=== PATIENT | male | born 1940 | race Caucasian/White ===

== ENCOUNTER 2019-06-30 19:08 | Observation (INO) | payer MEDICARE, BC ==
[~2019-06-30] VITALS: Ht 175.3 cm; Wt 108.9 kg
[~2019-06-30 19:08] MED LIST: ASPI325; Baclofen10 MG PO; CYCL10 PO; ESCI20; ESCI20 PO; HYDACE10 PO; HYDACE5; HYDMOR2 PO; IBUP400 PO; IBUP800; Kristalose20 GM PO; LORA1 PO; LOVA40; Lasix40 MG PO; MECL25; META800 PO; MULVITA; OLME20; Percocet 5-3251 EACH PO; Prednisone20 MG PO; Protonix40 MG PO; RXHYDACE PO; Roxicodone15 MG PO
[2019-06-30] MEDS ORDERED: OXYC5 PO (19:32)
[2019-06-30] MEDS ORDERED: ASPI325 PO (19:32)
[2019-06-30] MEDS ORDERED: BACL10 PO ×2 (19:34)
[2019-06-30] MEDS ORDERED: ONDA8 MM (19:36)
[2019-06-30] MEDS ORDERED: METOPROLOL SUCC25 MG PO (19:36)
[2019-06-30] MEDS ORDERED: ROSU10TA PO (19:36)
[2019-06-30] MEDS ORDERED: Acetaminophen-1 EAC1 PO (19:41)
[2019-06-30] MEDS ORDERED: METO25ER PO (19:42)
[2019-06-30 19:47] LABS: BASOPHILS ABSOLUTE AUTO 0.04 K/mm3 (0.00-0.23); BASOPHILS PERCENT AUTO 0 % (0-2); EOSINOPHILS ABSOLUTE AUTO 0.08 K/mm3 (0.00-0.68); EOSINOPHILS PERCENT AUTO 1 % (0-6); Hematocrit 38.7 % (37.0-53.0); Hemoglobin 12.8 g/dL (13.5-17.5); IMMATURE GRAN ABSOLUTE AUTO 0.07 K/mm3 (0.00-0.10); IMMATURE GRAN PERCENT AUTO 1 % (0-1); LYMPHOCYTES ABSOLUTE AUTO 0.87 K/mm3 (0.84-5.20); LYMPHOCYTES PERCENT AUTO 8 % (21-46); MONOCYTES ABSOLUTE AUTO 1.35 K/mm3 (0.16-1.47); MONOCYTES PERCENT AUTO 13 % (4-13); Mean Corpuscular HGB 28.8 pg (26.0-34.0); Mean Corpuscular HGB Conc 33.1 g/dL (31.5-36.5); Mean Corpuscular Volume 87 fL (80-100); Mean Platelet Volume 9.8 fL (9.1-12.4); NEUTROPHILS ABSOLUTE AUTO 8.15 K/mm3 (1.96-9.15); NEUTROPHILS PERCENT AUTO 77 % (41-73); Platelet Count 224 K/mm3 (150-400); RDW Coefficient Variation 13.9 % (11.7-14.2); RDW Standard Deviation 44.6 fL (35.1-46.3); Red Blood Cell Count 4.44 M/mm3 (4.30-5.90); White Blood Cell Count 10.56 K/mm3 (4.00-11.30)
[2019-06-30 20:12] LABS: Alanine Aminotransfer (ALT/SGP 17 U/L (12-78); Albumin, Blood 3.3 g/dL (3.4-5.0); Albumin/Globulin Ratio 1.1 (0.8-1.8); Alk Phos 51 U/L (50-136); Anion Gap 6 mmol/L (6-16); Aspartate Aminotrans (AST/SGOT 20 U/L (12-37); Bilirubin, Total 1.4 mg/dL (0.1-1.0); Blood Urea Nitrogen 18 mg/dL (8-24); Bun/Creatinine Ratio 17.8 (12.0-20.0); CO2, Blood 27 mmol/L (21-32); Calcium, Blood 8.2 mg/dL (8.5-10.1); Chloride, Blood 102 mmol/L (98-108); Creatinine, Blood 1.01 mg/dL (0.60-1.20); Glomerular Filtration Rate >60 (60-); Glucose, Blood 128 mg/dL (70-99); Potassium, Blood 3.9 mmol/L (3.5-5.5); Sodium, Blood 135 mmol/L (136-145); Total Protein, Blood 6.3 g/dL (6.4-8.2)
[2019-06-30] MEDS ORDERED: Flonase 0.05% N16 GM (21:01)
--- NOTE | 2019-06-30 23:28 | NUR ---
ADMISSION: PATIENT IS RECIEVED FROM ER VIA STRETCHER. SLIDE TRANSFER TO BED, IVF INFUSING. PATIENT RATES R HIP PAIN AT A 2/10, REPORTS GOOD EFFECT FROM MEDICATION GIVEN IN ER.
[2019-07-01 02:18] LABS: Hematocrit 36.3 % (37.0-53.0); Mean Corpuscular HGB 28.4 pg (26.0-34.0); Mean Corpuscular HGB Conc 33.1 g/dL (31.5-36.5); Mean Corpuscular Volume 86 fL (80-100); Mean Platelet Volume 9.6 fL (9.1-12.4); Platelet Count 196 K/mm3 (150-400); RDW Coefficient Variation 14.1 % (11.7-14.2); RDW Standard Deviation 44.1 fL (35.1-46.3); Red Blood Cell Count 4.23 M/mm3 (4.30-5.90); White Blood Cell Count 9.33 K/mm3 (4.00-11.30)
[2019-07-01 02:39] LABS: Alanine Aminotransfer (ALT/SGP 16 U/L (12-78); Alk Phos 49 U/L (50-136); Anion Gap 6 mmol/L (6-16); Aspartate Aminotrans (AST/SGOT 15 U/L (12-37); Bilirubin, Total 1.5 mg/dL (0.1-1.0); Blood Urea Nitrogen 16 mg/dL (8-24); CO2, Blood 30 mmol/L (21-32); CPK Creatine Kinase 254 U/L (39-308); Calcium, Blood 7.8 mg/dL (8.5-10.1); Chloride, Blood 103 mmol/L (98-108); Glomerular Filtration Rate >60 (60-); Glucose, Blood 107 mg/dL (70-99); Potassium, Blood 3.8 mmol/L (3.5-5.5); Sodium, Blood 139 mmol/L (136-145); Troponin I 0.237 ng/mL (0.000-0.040)
[2019-07-01 06:07] LABS: Source, Urine Clean Catch
[2019-07-01 06:11] LABS: Bilirubin, Urine Neg (Neg); Blood, Urine 1+ (Neg); Glucose Qualitative, Urine Neg (Neg); Ketones, Urine Neg (Neg); Leukocyte Esterase, Urine Neg (Neg); Nitrite, Urine Neg (Neg); Protein, Urine Neg (Neg); Specific Gravity, Urine 1.015 (1.003-1.022); Urobilinogen, Urine NORM (Normal)
[2019-07-01 06:18] LABS: Appearance, Urine Clear (Clear); Color, Urine Yellow (P-Yellow)
[2019-07-01 06:20] LABS: Bacteria Rare /hpf; Red Blood Cells, Urine 0-2 /hpf (0-2); Squamous Epithelial Cells Few /hpf (Few); White Blood Cells, Urine 0-2 /hpf (0-5)
[2019-07-01 06:24] LABS: U Amphetamine Screen Not Detected; U Barbituate Screen Not Detected; U Benzodiazapine Screen Not Detected; U Buprenorphine Screen Not Detected; U Cannabinoids Screen Not Detected; U Cocaine Screen Not Detected; U Methadone Screen Not Detected; U Methamphetamine Screen Not Detected; U Opiates Screen Not Detected; U Oxycodone Screen DETECTED; U Phencyclidine Screen Not Detected; U Propoxyphene Screen Not Detected
--- NOTE | 2019-07-01 07:13 | NUR ---
SHIFT SUMMARY: PATIENT WAS GIVEN TYLENOL AND ICE THERAPY FOR R KNEE PAIN WITH GOOD EFFECT. VS ARE STABLE, BED ALARM REMAINS ON FOR SAFETY.
--- NOTE | 2019-07-01 09:51 | NUR ---
Echocardiogram completed.
[2019-07-01 11:23] LABS: Troponin I 0.17 ng/mL (0.000-0.040)
--- NOTE | 2019-07-01 18:23 | NUR ---
shift summary PATIENT PLEASANT, ALERT ANF ORIENTED. ONE PERSON ASSIST. NO IV FLUIDS. WILL ASSESS FOR CHANGES.
[2019-07-02 06:08] LABS: BASOPHILS ABSOLUTE AUTO 0.04 K/mm3 (0.00-0.23); BASOPHILS PERCENT AUTO 1 % (0-2); EOSINOPHILS ABSOLUTE AUTO 0.25 K/mm3 (0.00-0.68); EOSINOPHILS PERCENT AUTO 3 % (0-6); Hematocrit 36.2 % (37.0-53.0); Hemoglobin 12.1 g/dL (13.5-17.5); IMMATURE GRAN ABSOLUTE AUTO 0.04 K/mm3 (0.00-0.10); IMMATURE GRAN PERCENT AUTO 1 % (0-1); LYMPHOCYTES ABSOLUTE AUTO 1.67 K/mm3 (0.84-5.20); LYMPHOCYTES PERCENT AUTO 22 % (21-46); MONOCYTES ABSOLUTE AUTO 1.03 K/mm3 (0.16-1.47); MONOCYTES PERCENT AUTO 14 % (4-13); Mean Corpuscular HGB 28.2 pg (26.0-34.0); Mean Corpuscular HGB Conc 33.4 g/dL (31.5-36.5); Mean Corpuscular Volume 84 fL (80-100); Mean Platelet Volume 9.5 fL (9.1-12.4); NEUTROPHILS ABSOLUTE AUTO 4.59 K/mm3 (1.96-9.15); NEUTROPHILS PERCENT AUTO 60 % (41-73); Platelet Count 218 K/mm3 (150-400); RDW Coefficient Variation 13.7 % (11.7-14.2); RDW Standard Deviation 42.5 fL (35.1-46.3); Red Blood Cell Count 4.29 M/mm3 (4.30-5.90); White Blood Cell Count 7.62 K/mm3 (4.00-11.30)
[2019-07-02 06:24] LABS: Anion Gap 7 mmol/L (6-16); Blood Urea Nitrogen 18 mg/dL (8-24); Bun/Creatinine Ratio 19.2 (12.0-20.0); CO2, Blood 28 mmol/L (21-32); Calcium, Blood 8.1 mg/dL (8.5-10.1); Chloride, Blood 104 mmol/L (98-108); Creatinine, Blood 0.94 mg/dL (0.60-1.20); Glomerular Filtration Rate >60 (60-); Glucose, Blood 100 mg/dL (70-99); Potassium, Blood 3.4 mmol/L (3.5-5.5); Sodium, Blood 139 mmol/L (136-145)
--- NOTE | 2019-07-02 07:42 | NUR ---
SHIFT SUMMARY: PATIENT IS A&OX4, PAIN IS RIGHT KNEE IS WELL CONTROLED WITH ICE AND 1 DOSE OF IV TORADOL. ABLE TO SIT ON EDGE OF BED TO USE URINAL. NO EVENT ON TELEMETRY THIS SHIFT.
[2019-07-02] MEDS ORDERED: ACET325 PO (13:33)
[2019-07-02] MEDS ORDERED: DOCU100 PO (13:33)
--- NOTE | 2019-07-02 15:12 | NUR ---
PT DISCHARGED TO HOME. PTS SPOUSE PROVIDING TRANSPORTATION HOME. PT PROVIDED DISCHARGE INSTRUCTIONS AND MEDICATION EDUCATION PRIOR TO DISCHARGE. PT TO WHEELCHAIR WITH ASSISTANCE FOR DISCHARGE. PT BELONGINGS WITH PT UPON DISCHARGE. PT TRANSFERED TO FROM WHEELCHAIR TO VEHICLE WITHOUT ASSISTANCE.
== END 2019-07-02 14:28 | disposition home or self-care (01) ==
LOC: ER 19:08 → MEDS 19:09 → ENPENDDIS 07-02 11:58 → MEDS 07-02 14:28
PROVIDERS: Emergency Medicine; Internal Medicine; ADMIT Internal Medicine
DX: G93.40 Encephalopathy, unspecified (principal); R77.8 Other specified abnormalities of plasma proteins; E87.6 Hypokalemia; D64.9 Anemia, unspecified; E78.5 Hyperlipidemia, unspecified; G89.29 Other chronic pain; M54.9 Dorsalgia, unspecified; I72.6 Aneurysm of vertebral artery; I51.89 Other ill-defined heart diseases; R00.1 Bradycardia, unspecified; R25.2 Cramp and spasm; Z79.51 Long term (current) use of inhaled steroids; Z88.5 Allergy status to narcotic agent; Z88.8 Allergy status to other drugs, medicaments and biological substances; Z79.82 Long term (current) use of aspirin; Z79.1 Long term (current) use of non-steroidal anti-inflammatories (NSAID); Z79.899 Other long term (current) drug therapy; Z95.0 Presence of cardiac pacemaker; Z96.651 Presence of right artificial knee joint
CPT/HCPCS: 36415; 70450; 71045; 80048; 80053; 81001; 82550; 83735; 84484; 85025; 85027; 93005; 93010; 93306; 93971; 96372; 99285-25; A9270; J1650; J1885; J7030

== ENCOUNTER 2020-09-13 13:45 | Emergency (ER) | payer MEDICARE, BC ==
[~2020-09-13] VITALS: Ht 177.8 cm; Wt 110.2 kg
[~2020-09-13 13:45] MED LIST changes: +ACET325 PO; +ASPI325 PO; +Acetaminophen-1 EAC1 PO; +BACL10 PO; +DOCU100 PO; +Flonase 0.05% N16 GM; +METO25ER PO; +METOPROLOL SUCC25 MG PO; +ONDA8 MM; +OXYC5 PO; +ROSU10TA PO
== END 2020-09-13 16:09 | disposition home or self-care (01) ==
LOC: ER 13:45
DX: R04.0 Epistaxis (principal); E78.5 Hyperlipidemia, unspecified; Z88.5 Allergy status to narcotic agent; Z88.8 Allergy status to other drugs, medicaments and biological substances; Z79.82 Long term (current) use of aspirin; Z79.899 Other long term (current) drug therapy
CPT/HCPCS: 99283; A9270

== ENCOUNTER 2021-03-16 09:13 | Emergency (ER) | payer MEDICARE, BC ==
[~2021-03-16] VITALS: Ht 175.3 cm; Wt 107.0 kg
[2021-03-16] MEDS ORDERED: Percocet 5-3251 EACH PO (11:19)
== END 2021-03-16 11:30 | disposition home or self-care (01) ==
LOC: ER 09:13
DX: R10.2 Pelvic and perineal pain (principal); Z88.5 Allergy status to narcotic agent; Z88.8 Allergy status to other drugs, medicaments and biological substances
CPT/HCPCS: 72170; 99283-25; A9270